=== PATIENT | male | born 1995 | race African-American/Black ===

== ENCOUNTER 2021-06-02 17:05 | Emergency (ER) | payer MEDICAID ==
[~2021-06-02] VITALS: Ht 157.5 cm; Wt 70.3 kg
[2021-06-02 17:15] VITALS: BP 119/66
--- NOTE | 2021-06-02 17:15 | NUR ---
Patient assisted from [facility] onto bed 08.
--- NOTE | 2021-06-02 17:15 | NUR ---
26 y/o M BIBA after bystanders called 911 for patient laying in [place] of [place]. Per EMS, patient presented A&Ox3. Pt A&O to name/year/place. EMS reports patient states generalized abdominal pain to RLQ. Upon assessment, patient reports 10/10 generalized body pain and guards body upon palpation to different body regions. Patient denies any drugs or alcohol. Unable to answer suicidal ideation questions. AccuChek 76. Patient at this time reporting that he is hungry. Pt placed onto monitor and storage bin tender. VSS; respirations even/unlabored. Bed locked in lowest position, side rails x 1, call light in reach. PMH/Sx/Meds: Nurys ROSADO
--- NOTE | 2021-06-02 17:45 | NUR ---
Dr. Magana is evaluating patient at bedside.
--- NOTE | 2021-06-02 17:50 | NUR ---
[place] provided. Pt completing meal at this time.
--- NOTE | 2021-06-02 18:28 | NUR ---
Lab at bedside.
--- NOTE | 2021-06-02 18:34 | NUR ---
Covid leonard and novel swabs collected, handed to CPT Horace at ER bedside.
--- NOTE | 2021-06-02 18:43 | NUR ---
SUBMITTED REQUEST FOR TELE PSYCH PER DR. FINK CONNECT ID#[id number]
--- NOTE | 2021-06-02 18:44 | NUR ---
PT MOVED TO BED 6.
[2021-06-02 18:47] LABS: BASOPHILS % (AUTO) 0.4 % (0.0-2.0); EOSINOPHILS # (AUTO) 0.1 K/uL (0-0.4); EOSINOPHILS % (AUTO) 1.6 % (0.0-4.0); HEMATOCRIT 41.3 % (36-52); HEMOGLOBIN 13.8 g/dL (12.0-18.0); LYMPHOCYTES # (AUTO) 2.1 K/uL (2.0-11.5); LYMPHOCYTES % (AUTO) 31.6 % (20.5-51.1); MEAN CORPUSCULAR HEMOGLOBIN 29 pg (27-31); MEAN CORPUSCULAR HGB CONC 33 g/dL (33-37); MEAN CORPUSCULAR VOLUME 85.5 fL (80-94); MONOCYTES # (AUTO) 0.7 K/uL (0.8-1.0); MONOCYTES % (AUTO) 10.6 % (1.7-9.3); NEUTROPHILS # (AUTO) 3.6 K/uL (1.8-7.7); NEUTROPHILS % (AUTO) 55.8 % (42.2-75.2); PLATELET COUNT (AUTO) 284 K/uL (140-450); RED BLOOD CELL COUNT(AUTO) 4.83 MIL/uL (4.20-6.10); RED CELL DISTRIBUTION WIDTH 14.4 % (11.6-13.7); WHITE BLOOD COUNT (AUTO) 6.5 K/uL (4.8-10.8)
[2021-06-02 18:51] LABS: APPEARANCE,URINE CLOUDY (CLEAR); BILIRUBIN,URINE 2+ (NEGATIVE); BLOOD, URINE 3+ (NEGATIVE); COLOR,URINE YELLOW (YELLOW); LEUKOCYTE ESTERASE ,URINE NEGATIVE (NEGATIVE); NITRITE, URINE NEGATIVE (NEGATIVE); PH,URINE 6.5 (5.0-9.0); UGLUCOSE TRACE (NEGATIVE)
--- NOTE | 2021-06-02 19:01 | NUR ---
Dr. Magana is at bedside attempting to have pateint sit on [facility]'s wheelchair for transport.
--- NOTE | 2021-06-02 19:02 | NUR ---
Patient refusing to be transported via wheelchair at this time. Dr. Magana at bedside made aware.
[2021-06-02 19:06] LABS: RBC,URINE >100 /HPF (0-5)
[2021-06-02 19:07] LABS: BARBITURATE, URINE NEGATIVE ng/ml (NEG <=200); BENZODIAZEPINE, URINE NEGATIVE ng/mL (NEG <=200); CANNABINOID, URINE NEGATIVE ng/mL (NEG <=50); COCAINE, URINE NEGATIVE ng/mL (NEG <=300); OPIATE, URINE NEGATIVE ng/mL (NEG <=2000); PHENCYCLIDINE SCREEN,URINE NEGATIVE ng/mL (NEG <=25)
[2021-06-02 19:09] LABS: ACETAMINOPHEN < 0.5 ug/ml (10-30); ALBUMIN 3.4 g/dL (3.4-5.0); ANION GAP 6.1 (8-16); ASPARTATE AMINOTRANSFERASE 18 U/L (15-37); CARBON DIOXIDE 32.3 mmol/L (21-32); CHLORIDE 103 mmol/L (98-107); CREATININE 0.8 mg/dL (0.6-1.3); GFR ARICAN-AMERICAN 150 mL/min (>90); GLUCOSE 93 mg/dL (74-106); POTASSIUM 3.4 mmol/L (3.5-5.1); SALICYLATE < 2.8 mg/dL (2.8-20.0); SODIUM SERUM 138 mmol/L (136-145); TOTAL BILIRUBIN 0.3 mg/dL (0.0-1.0); UREA NITROGEN, BLOOD 10 mg/dL (7-18)
--- NOTE | 2021-06-02 19:13 | NUR ---
REPORT AND CONTINUATION OF CARE GIVEN TO AAMIR ROBB.
--- NOTE | 2021-06-02 19:13 | NUR ---
REPORT TAKEN FROM AAMIR VENEGAS FOR CONTINUATION OF PATIENT CARE AT THIS TIME.
--- NOTE | 2021-06-02 19:20 | NUR ---
Note undone in EDM - 06/03/21 at 0327 by NAVDEEP PATIENT WALKED OUT OF ED, WENT TO SPEAK W PATIENT PATIENT PRESENT AOX3, GCS 14 IS CONFUSED. ASSISTED PATIENT BACK TO BED. PATIENT DENIES ANY PAIN. PROVIDED PATIENT W PUDDING PER REQUEST. PATIENT LAYING IN BED LOCKED IN LOWEST POSITION, X1 SIDERAIL UP. WILL CONTINUE TO MONITOR.
--- NOTE | 2021-06-02 19:20 | NUR ---
PATIENT WALKED OUT OF ED, WENT TO SPEAK W PATIENT PATIENT PRESENT AOX3, GCS 14 IS CONFUSED. PATIENT REFUSING TO COME BACK INTO ER. DRISS REPORTS PATIENT IS CONFUSED AND APPEARS GRAVELY DISABLED, PER DRISS CONTACTED NICK ELISE TO PLACE PATIENT ON 5150 HOLD. CONTACTED NICK ELISE AT 1932 NO ETA AT THIS TIME. PATIENT WITH 2 GEOSPATIAL INFORMATION TECHNOLOGIST AT THIS TIME OUTSIDE OF ER.
--- NOTE | 2021-06-02 19:20 | NUR ---
Note undone in EDM - 06/03/21 at 0332 by NAVDEEP PATIENT WALKED OUT OF ED, WENT TO SPEAK W PATIENT PATIENT PRESENT AOX3, GCS 14 IS CONFUSED. PATIENT REFUSING TO COME BACK INTO ER. ERMD REPORTS PATIENT IS CONFUSED AND APPEARS GRAVELY DISABLED, PER DRISS CONTACTED NICK ELISE TO PLACE PATIENT ON 5150 HOLD. CONTACTED NICK ELISE AT 2110 NO ETA AT THIS TIME. PATIENT WITH 2 PEARL RESTORER AT THIS TIME OUTSIDE OF ER.
--- NOTE | 2021-06-02 19:43 | NUR ---
ASSISTED PATIENT BACK TO BED. PATIENT DENIES ANY PAIN. PROVIDED PATIENT W PUDDING PER REQUEST. PATIENT LAYING IN BED LOCKED IN LOWEST POSITION, X1 SIDERAIL UP. WILL CONTINUE TO MONITOR.
--- NOTE | 2021-06-02 20:46 | NUR ---
pt given water per request.
--- NOTE | 2021-06-02 21:10 | NUR ---
PATIENT WALKED OUT OF ER UPON PD ARRIVAL. PD SPEAKING W PATIENT AT THIS TIME.
--- NOTE | 2021-06-02 21:15 | NUR ---
PATIENT BACK IN ROOM, LAYING IN BED. PD AT BEDSIDE.
--- NOTE | 2021-06-02 21:25 | NUR ---
[place] PD AT BEDSIDE. PT PLACED ON 5150 AT THIS TIME.
--- NOTE | 2021-06-02 21:27 | NUR ---
SPOKE TO DEISI COORDINATOR FOR TELE MED PSYCH, PER DEISI WAIT TIME FOR TELE PSYCH DOCTOR HAS BEEN EXTENDED.
[2021-06-02] MEDS ORDERED: ZIPRASIDONE MESYLATE 20 MG/ML VIAL IM ONE (21:35)
[2021-06-02] MEDS ORDERED: NACL 0.9% 1,000 ML IV ONE (22:00)
--- NOTE | 2021-06-02 22:05 | NUR ---
PATIENT LAYING IN BED W EYES CLOSED IN SUPINE POSITION, HOB SLIGHTLY ELEVATED. BREATHING EVEN AND UNLABORED. NAD NOTED, WILL CONTNUE TO MONITOR.
--- NOTE | 2021-06-02 23:10 | NUR ---
PATIENT TAKEN TO CT VIA GURNEY.
--- NOTE | 2021-06-03 00:50 | NUR ---
PATIENT LAYING IN BED W EYES CLOSED IN R LATERAL POSITION, HOB SLIGHTLY ELEVATED. BREATHING EVEN AND UNLABORED W VSS. NAD NOTED, WILL CONTNUE TO MONITOR.
--- NOTE | 2021-06-03 02:00 | NUR ---
PATIENT LAYING IN BED W EYES CLOSED IN R LATERAL POSITION W BLANKET ON, HOB SLIGHTLY ELEVATED. BREATHING EVEN AND UNLABORED. BED LOCKED IN LOWEST POSITION. VSS, NAD NOTED, WILL CONTNUE TO MONITOR.
--- NOTE | 2021-06-03 04:00 | NUR ---
PATIENT LAYING IN BED, LOCKED IN LOWEST POSITION, X2 SIDE RAILS UP FOR PATIENT SAFETY. PATIENT IN R LATERAL POSITION W EYES CLOSED. BREATHING EVEN AND UNLABORED, AND NOTED. WILL CONTINUE TO MONITOR.
--- NOTE | 2021-06-03 07:00 | NUR ---
PATIENT AWAKE, EATING CRACKERS. DOES NOT RESPOND TO QUESTIONS. NODDED HEAD UP AND DOWN WHEN ASKED IF HE FEELS OK.
--- NOTE | 2021-06-03 07:10 | NUR ---
REPORT GIVEN TO AAMIR GARCIA FOR TRANSFER OF PATIENT CARE AT THIS TIME.
--- NOTE | 2021-06-03 07:12 | NUR ---
RECEIVED REPORT FROM AAMIR ROBB. TRANSFER OF CARE RECIEVED
--- NOTE | 2021-06-03 07:57 | NUR ---
Packet received for placement Fax to [facility]. [place]/elan Gao
--- NOTE | 2021-06-03 07:59 | NUR ---
Packet received by [facility] whit[facility]
--- NOTE | 2021-06-03 08:21 | NUR ---
DR. IRAHETA BEDSIDE CURRENTLY SPEAKING WITH PT. PT WAS PROVIDED BREAKFAST FINISHED ENTIRE TRAY. PT VITALS STABLE. BED IN LOWEST POSITION WITH SIDERAIL X1 UP. BED IN LOCKED POSITION. WILL CONTINUE TO MONITOR
--- NOTE | 2021-06-03 10:31 | NUR ---
PT CURRENTLY RESTING BEDSIDE WITH EYES OPEN. PT PROVIDED WITH WATER AND JELLO BEDSIDE. BED IN LOWEST POSITION WITH SIDERAIL X1 UP AND BED LOCKED. VITAL SIGNS STABLE. WILL CONTINUE TO MONITOR
--- NOTE | 2021-06-03 13:04 | NUR ---
PT CURRENTLY EATING BEDSIDE.
--- NOTE | 2021-06-03 13:10 | NUR ---
Patient appears to be resting comfortably in bed. Vital Signs within normal limits. Respirations even and unlabored. lunch at bedside.
--- NOTE | 2021-06-03 14:40 | NUR ---
[facility]
--- NOTE | 2021-06-03 15:27 | NUR ---
PT CURRENTLY ON TELE-PSY CONSULTATION
--- NOTE | 2021-06-03 16:14 | NUR ---
OBTAINED VERBAL CONSENT FROM PT TO CONTACT HIS SISTER, REBECCA. PHONE #[phone]
[2021-06-03 16:39] VITALS: BP 116/56
--- NOTE | 2021-06-03 16:40 | NUR ---
Patient discharged with v/s stable. Written and verbal after care instructions given and explained. Patient verbalized understanding. Ambulatory with steady gait. All questions addressed prior to discharge. Advised to follow up with PMD.
== END 2021-06-03 16:40 | disposition home or self-care (01) ==
LOC: MED 17:05
DX: R41.82 Altered mental status, unspecified (principal); Z20.822 Contact with and (suspected) exposure to COVID-19; F29 Unspecified psychosis not due to a substance or known physiological condition; R31.9 Hematuria, unspecified; R10.13 Epigastric pain; F19.10 Other psychoactive substance abuse, uncomplicated
CPT/HCPCS: 36415; 74176; 80053; 80305; 81001; 82550; 85025; 87086; 87426; 96360; 96372; 99285; G0480; G0482; J3486; J7030; U0003; 96361